=== PATIENT | female | born 1965 | race Caucasian/White ===

== ENCOUNTER 2021-09-14 18:57 | Inpatient (IN) | payer OTHER ==
--- NOTE | 2021-09-14 20:56 | Emergency Department Report ---
ED Neuro Deficit HPI - General Chief Complaint: Neuro Symptoms/Deficit Stated Complaint: TIA Time Seen by Provider: 09/14/21 19:02 Source: patient, EMS, old records reviewed Mode of arrival: Stretcher Limitations: No Limitations - History of Present Illness Initial Comments: Chief complaint: Stroke HPI: This is a 55-year-old female with history of hypertension, dyslipidemia who presents from [facility] [place]note 2[place] via EMS after recent diagnosis of stroke acute today. This morning at 8 AM patient had the onset of right facial droop, slurred speec h, right upper and right lower extremity weakness. She was evaluated at [facility] [place][note 2]. MRI brain showed acute infarct left lentiform nuclei. MRA neck and [place]: No aneurysm or stenosis Patient has persistent symptoms. I reviewed labs obtained BMP within normal limits, CBC within normal limits According to medication administration documentation patient received aspirin at 1755 My personal interpretation of EKG via EMS EKG obtained 183 normal sinus rhythm rate 85 bpm normal axis normal intervals no ST elevation nonspecific T wave pattern enlarged inferior P waves -: Sudden, This morning (8:00) Location: speech, right face, right arm, right leg History of same: Yes Place: home Severity: mild Quality: weak Improves With: none Worsens With: none On Anticoagulants: No Context: sudden onset Associated Symptoms: denies other symptoms Treatments Prior to Arrival: Aspirin, other (Extensive work-up at [facility]) - Related Data Allergies/Adverse Reactions: Allergies Allergy/AdvReac Type Severity Reaction Status Date / Time No Known Allergies Allergy Verified 09/14/21 19:37 ED Review of Systems ROS: Stated complaint: TIA Other details as noted in HPI Comment: All other systems reviewed and negative Constitutional: denies: chills, fever, malaise Respiratory: denies: cough, shortness of breath Cardiovascular: denies: chest pain Gastrointestinal: denies: abdominal pain, nausea, vomiting Neurological: weakness. denies: headache, numbness, paresthesias, confusion Psychiatric: denies: anxiety, depression ED Past Medical Hx - Past Medical History Previous Medical History?: Yes Hx Hypertension: Yes Additional medical history: HIGH CHOLESTEROL - Surgical History Past Surgical History?: Yes Additional Surgical History: Breast implant surgery - Family History Family history: diabetes, hypertension, vascular disease (Mother has history of diabetes, stroke. Brother received heart transplant) - Social History Smoking Status: Never Smoker Substance Use Type: None ED Neuro Physical Exam - General Limitations: No Limitations General appearance: alert, in no apparent distress Suspected Stroke: Yes - Head Head exam: Present: atraumatic, normocephalic - Eye Eye exam: Present: normal appearance - ENT ENT exam: Present: mucous membranes moist - Neck Neck exam: Present: normal inspection, full ROM - Respiratory Respiratory exam: Present: normal lung sounds bilaterally. Absent: respiratory distress, wheezes, rales, rhonchi - Cardiovascular Cardiovascular Exam: Present: regular rate, normal rhythm, normal heart sounds. Absent: systolic murmur, diastolic murmur, rubs, gallop - GI/Abdominal GI/Abdominal exam: Present: soft, normal bowel sounds. Absent: distended, tenderness, guarding, rebound - Extremities Exam Extremities exam: Present: normal inspection - Back Exam Back exam: Present: normal inspection - Neurological Exam Neurological exam: Present: alert, oriented X3 - NIHSS Assessment Interval: Baseline 1a. Level of Consciousness: alert/keenly responsive 1b. LOC Questions: answers both correctly 1c. LOC Commands: performs tasks correctly 2. Best Gaze: normal 3. Visual: no visual loss 4. Facial Palsy: minor paralysis 5b. Motor Arm Right: drift 5a. Motor Arm Left: no drift 6a. Motor Leg Left: no drift 6b. Motor Leg Right: drift 7. Limb Ataxia: absent 8. Sensory: normal 9. Best Language: mild/moderate aphasia 10. Dysarthria: mild/moderate dysarthria 11. Extinction/Inattention: no abnormality Total Score: 5 Stroke Severity: Moderate Stroke - Psychiatric Psychiatric exam: Present: normal affect, normal mood - Skin Skin exam: Present: warm, dry, intact, normal color. Absent: rash ED Course Vital Signs 09/14/21 19:56 Temperature 98.1 F Pulse Rate 82 Respiratory 14 Rate Blood Pressure 187/94 [Left] O2 Sat by Pulse 100 Oximetry - Lab Data Result diagrams: 09/14/21 21:21 09/14/21 21:21 Lab Results 09/14/21 09/14/21 09/14/21 Range/Units 21:21 21:21 21:21 WBC 8.8 (4.5-11.0) K/mm3 RBC 4.42 (3.65-5.03) M/mm3 Hgb 13.8 (10.1-14.3) gm/dl Hct 41.8 (30.3-42.9) % MCV 95 (79-97) fl MCH 31 (28-32) pg MCHC 33 (30-34) % RDW 12.6 L (13.2-15.2) % Plt Count 242 (140-440) K/mm3 Lymph % (Auto) 16.7 (13.4-35.0) % [place] % (Auto) 4.0 (0.0-7.3) % Eos % (Auto) 0.4 (0.0-4.3) % Baso % (Auto) 0.3 (0.0-1.8) % Lymph # (Auto) 1.5 (1.2-5.4) K/mm3 [place] # (Auto) 0.4 (0.0-0.8) K/mm3 Eos # (Auto) 0.0 (0.0-0.4) K/mm3 Baso # (Auto) 0.0 (0.0-0.1) K/mm3 Seg Neutrophils % 78.6 H (40.0-70.0) % Seg Neutrophils # 6.9 (1.8-7.7) K/mm3 PT 12.3 (12.2-14.9) Sec. INR 0.82 L (0.87-1.13) APTT 35.3 (24.2-36.6) Sec. Sodium 141 (137-145) mmol/L Potassium 3.7 (3.6-5.0) mmol/L Chloride 102.8 (98-107) mmol/L Carbon Dioxide 24 (22-30) mmol/L Anion Gap 18 mmol/L BUN 14 (7-17) mg/dL Creatinine 0.6 (0.6-1.2) mg/dL Estimated GFR > 60 ml/min BUN/Creatinine Ratio 23 % Glucose 140 H (65-100) mg/dL Calcium 9.9 (8.4-10.2) mg/dL Total Bilirubin 0.20 (0.1-1.2) mg/dL AST 18 (5-40) units/L ALT 11 (7-56) units/L Alkaline Phosphatase 110 (35-129) units/L Troponin T < 0.010 (0.00-0.029) ng/mL Total Protein 7.1 (6.3-8.2) g/dL Albumin 4.6 (3.9-5) g/dL Albumin/Globulin Ratio 1.8 % - EKG Data -: EKG Interpreted by Me EKG shows normal: sinus rhythm Rate: normal Interpretation: nonspecific ST-T wave ryan 09/14/21 20:57 EKG obtained 3 EKG interpreted by me Normal sinus rhythm normal rate normal axis normal intervals no ST elevation no ST-T signs of ischemia normal EKG rate 60 beats per - Medical Decision Making Acute CVA, MRI revealed acute infarct left lentiform nuclear. Will allow permissive hypertension. No LVO on MRA of the neck and [place]. Shortly upon patient's arrival, I contacted [facility] physician. After case discussion, requested admission. Dr. Borjas [place] physician approved admission this facility. Admitted to the hospitalist service. EKG obtained per EMS and repeated in our emergency department without acute ischemia or infarct. Normal sinus rhythm without atrial fibrillation. CBC CMP within normal limits. PT PTT within normal limits. Patient is admitted to the hospital service for further treatment and evaluation of acute CVA. Critical care attestation.: If time is entered above; I have spent that time in minutes in the direct care of this critically ill patient, excluding procedure time. ED Disposition Clinical Impression: Acute CVA (cerebrovascular accident) Disposition: ADMITTED INPATIENT Is pt being admited?: Yes Does the pt Need Aspirin: No Condition: Stable
[2021-09-14 21:34] LABS: Basophils % (Auto) 0.3 % (0.0-1.8); Eosinophils % (Auto) 0.4 % (0.0-4.3); Hematocrit 41.8 % (30.3-42.9); Hemoglobin 13.8 gm/dl (10.1-14.3); Lymphocytes # (Auto) 1.5 K/mm3 (1.2-5.4); Lymphocytes % (Auto) 16.7 % (13.4-35.0); Mean Corpuscular HGB Conc 33 % (30-34); Mean Corpuscular Volume 95 fl (79-97); Monocytes # (Auto) 0.4 K/mm3 (0.0-0.8); Platelet Count 242 K/mm3 (140-440); Red Blood Count 4.42 M/mm3 (3.65-5.03); Red Cell Distribution Width 12.6 % (13.2-15.2)
[2021-09-14 21:44] LABS: INR 0.82 (0.87-1.13)
[2021-09-14 21:45] LABS: Partial Thromboplastin Time 35.3 Sec. (24.2-36.6)
[2021-09-14 21:56] LABS: Alanine Aminotransferase 11 units/L (7-56); Albumin 4.6 g/dL (3.9-5); Blood Urea Nitrogen 14 mg/dL (7-17); Calcium 9.9 mg/dL (8.4-10.2); Hemolysis Index 16
[2021-09-14 22:22] LABS: BUN/Creatinine Ratio 23
[2021-09-15] MEDS ORDERED: ONDANSETRON 4 MG/2 ML INJ IV PRN (00:51)
[2021-09-15] MEDS ORDERED: ALBUTEROL 2.5 MG/3 ML NEBU IH PRN (00:51)
[2021-09-15] MEDS ORDERED: MORPHINE 2 MG/1 ML INJ IV PRN (00:51)
[2021-09-15] MEDS ORDERED: ACETAMINOPHEN 325 MG TAB PO PRN (00:51)
[2021-09-15] MEDS ORDERED: HYDROmorphone 1 MG/1 ML INJ IV PRN (00:51)
--- NOTE | 2021-09-15 01:06 | History and Physical Report ---
History of Present Illness Date of examination: 09/15/21 Date of admission: 09/15/21 Chief complaint: Right upper extremity weakness History of present illness: 55-year-old female with history of hypertension, dyslipidemia was brought from [facility] [place] via EMS after recent diagnosis of stroke acute today. patient had the onset of right facial droop, slurred speech, right upper and right lower extremity weakness since 8 AM this morning. She was evaluated at [facility] [place]. MRI brain showed acute infarct left lentiform nuclei. MRA neck and [place]: No aneurysm or stenosis After case discussion, requested admission. Dr. Borjas [place] physician approved admission this facility. We will put the patient on CVA pathway. Aspirin . Lipitor. Will consult neurology for evaluation Past History Past Medical History: hypertension, hyperlipidemia Medications and Allergies Allergies Allergy/AdvReac Type Severity Reaction Status Date / Time No Known Allergies Allergy Verified 09/14/21 19:37 Review of Systems Constitutional: weakness Neurological: weakness, parathesias, numbness, change in speech Exam - Constitutional Vitals: Temp Pulse Resp BP Pulse Ox 98.1 F 69 20 161/92 99 09/14/21 19:56 09/14/21 23:00 09/14/21 23:00 09/14/21 23:00 09/14/21 23:00 General appearance: Present: no acute distress, well-nourished - EENT Eyes: Present: PERRL ENT: hearing intact, clear oral mucosa - Neck Neck: Present: supple, normal ROM - Respiratory Respiratory effort: normal Respiratory: bilateral: CTA - Cardiovascular Heart Sounds: Present: S1 & S2. Absent: rub, click - Extremities Extremities: pulses symmetrical, No edema Peripheral Pulses: within normal limits - Abdominal General gastrointestinal: Present: soft, non-tender, non-distended, normal bowel sounds Female genitourinary: Present: normal - Integumentary Integumentary: Present: clear, warm, dry - Musculoskeletal Musculoskeletal: gait normal, strength equal bilaterally - Psychiatric Psychiatric: appropriate mood/affect, intact judgment & insight - Neurologic Neurologic: CNII-XII intact, moves all extremities, other (Right upper extremity weakness right lower extremity weakness) HEART Score - HEART Score Troponin: Troponin T < 0.010 ng/mL (0.00-0.029) 09/14/21 21:21 Results - Labs CBC & Chem 7: 09/14/21 21:21 09/14/21 21:21 Labs: Laboratory Last Values WBC 8.8 K/mm3 (4.5-11.0) 09/14/21 21:21 RBC 4.42 M/mm3 (3.65-5.03) 09/14/21 21:21 Hgb 13.8 gm/dl (10.1-14.3) 09/14/21 21:21 Hct 41.8 % (30.3-42.9) 09/14/21 21:21 MCV 95 fl (79-97) 09/14/21 21:21 MCH 31 pg (28-32) 09/14/21 21: MCHC 33 % (30-34) 09/14/21 21: RDW 12.6 % (13.2-15.2) L 09/14/21 21:21 Plt Count 242 K/mm3 (140-440) 09/14/21 21: Lymph % (Auto) 16.7 % (13.4-35.0) 09/14/21 21:21 [place] % (Auto) 4.0 % (0.0-7.3) 09/14/21 21: Eos % (Auto) 0.4 % (0.0-4.3) 09/14/21 21: Baso % (Auto) 0.3 % (0.0-1.8) 09/14/21 21:21 Lymph # (Auto) 1.5 K/mm3 (1.2-5.4) 09/14/21 21: [place] # (Auto) 0.4 K/mm3 (0.0-0.8) 09/14/21 21:21 Eos # (Auto) 0.0 K/mm3 (0.0-0.4) 09/14/21 21:21 Baso # (Auto) 0.0 K/mm3 (0.0-0.1) 09/14/21 21: Seg Neutrophils % 78.6 % (40.0-70.0) H 09/14/21 21:21 Seg Neutrophils # 6.9 K/mm3 (1.8-7.7) 09/14/21 21: PT 12.3 Sec. (12.2-14.9) 09/14/21 21:21 INR 0.82 (0.87-1.13) L 09/14/21 21:21 APTT 35.3 Sec. (24.2-36.6) 09/14/21 21:21 Sodium 141 mmol/L (137-145) 09/14/21 21:21 Potassium 3.7 mmol/L (3.6-5.0) 09/14/21 21:21 Chloride 102.8 mmol/L (98-107) 09/14/21 21:21 Carbon Dioxide 24 mmol/L (22-30) 09/14/21 21:21 Anion Gap 18 mmol/L 09/14/21 21:21 BUN 14 mg/dL (7-17) 09/14/21 21:21 Creatinine 0.6 mg/dL (0.6-1.2) 09/14/21 21:21 Estimated GFR > 60 ml/min 09/14/21 21:21 BUN/Creatinine Ratio 23 % 09/14/21 21:21 Glucose 140 mg/dL (65-100) H 09/14/21 21:21 Calcium 9.9 mg/dL (8.4-10.2) 09/14/21 21:21 Total Bilirubin 0.20 mg/dL (0.1-1.2) 09/14/21 21:21 AST 18 units/L (5-40) 09/14/21 21:21 ALT 11 units/L (7-56) 09/14/21 21:21 Alkaline Phosphatase 110 units/L (35-129) 09/14/21 21:21 Troponin T < 0.010 ng/mL (0.00-0.029) 09/14/21 21:21 Total Protein 7.1 g/dL (6.3-8.2) 09/14/21 21:21 Albumin 4.6 g/dL (3.9-5) 09/14/21 21:21 Albumin/Globulin Ratio 1.8 % 09/14/21 21:21 - Imaging and Cardiology MRI - head: report reviewed Assessment and Plan VTE prophylaxis?: Chemical Plan of care discussed with patient/family: Yes - Patient Problems (1) Acute CVA (cerebrovascular accident) Current Visit: Yes Status: Acute Plan to address problem: Admit the patient to the medical telemetry. Aspirin 325 mg p.o. daily. Lipitor 40 mg p.o. daily. PT OT any speech evaluation. Neurology evaluation. MRI of the brain and MRA of the brain and neck with and without contrast, echocardiogram (2) Hypertension Current Visit: Yes Status: Acute Plan to address problem: Labetalol 10 mg IV every 6 hours as needed. Will allow permissive hypertension (3) Dyslipidemia Current Visit: Yes Status: Acute Plan to address problem: Lipitor 40 mg p.o. daily. Recheck lipid panel (4) DVT prophylaxis Current Visit: Yes Status: Acute Plan to address problem: Heparin 5000 units subcu every 8 hours for DVT prophylaxis. Pepcid 20 mg IV every 12 hours for GI prophylaxis. Patient is a full code
[2021-09-15] MEDS: IPRATROPIUM/ALBUTEROL SULFATE 3 ML AMPUL.NEB IH SCH ×4 (04:50→20:41)
[2021-09-15] MEDS: SODIUM CHLORIDE 0.9% 1000 ML 1,000 ML IV SCH (06:09)
[2021-09-15] MEDS: HEPARIN 5,000 UNIT/1 ML VIAL SUB-Q SCH ×3 (06:10→21:36)
--- NOTE | 2021-09-15 08:25 | Consultation ---
History of Present Illness Consult date: 09/15/21 Reason for Consult: right side weakness History of present illness: Right upper extremity weakness History of present illness: 55-year-old female with history of hypertension, dyslipidemia was brought from [facility] via EMS after recent diagnosis of stroke acute today. patient had the onset of right facial droop, slurred speech, right upper and right lower extremity weakness since 8 AM this morning. She was evaluated at [facility]. MRI brain showed acute infarct left lentiform nuclei. MRA neck and [place]: No aneurysm or stenosis According to pt. 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 Dr. Borjas [place] physician approved admission this facility. We will put the patient on CVA pathway. Aspirin . Lipitor. Past History Past Medical History: hypertension, hyperlipidemia Medications and Allergies Allergies Allergy/AdvReac Type Severity Reaction Status Date / Time No Known Allergies Allergy Verified 09/14/21 19:37 Review of Systems Constitutional: weakness Neurological: weakness, parathesias, numbness, change in speech Exam Past History Past Medical History: hypertension, hyperlipidemia Medications and Allergies Allergies Allergy/AdvReac Type Severity Reaction Status Date / Time No Known Allergies Allergy Verified 09/14/21 19:37 Home Medications Medication Instructions Recorded Confirmed Last Taken Type Rosuvastatin (Nf) [Crestor] 5 mg PO QHS 09/15/21 09/15/21 09/13/21 19:45 History Vitamin D3 1 09/15/21 Unknown History hydroCHLOROthiazide 12.5 mg PO QDAY 09/15/21 09/15/21 09/13/21 09:00 History [Hydrochlorothiazide] Active Meds: Active Medications Acetaminophen (Acetaminophen 325 Mg Tab) 650 mg PO Q4H PRN PRN Reason: Pain MILD(1-3)/Fever >100.5/HECK Albuterol (Albuterol 2.5 Mg/3 Ml Nebu) 2.5 mg IH Q3HRT PRN PRN Reason: Shortness Of Breath Albuterol/Ipratropium (Ipratropium/Albuterol Sulfate 3 Ml Ampul.Neb) 1 ampul IH Q6HRT [facility] Last Admin: 09/15/21 04:50 Dose: Not Given Aspirin (Aspirin 325 Mg Tab) 325 mg PO QDAY [facility] Atorvastatin Calcium (Atorvastatin 40 Mg Tab) 40 mg PO QHS [facility] Famotidine (Famotidine 20 Mg/2 Ml Inj) 20 mg IV BID [facility] Heparin Sodium (Porcine) (Heparin 5,000 Unit/1 Ml Vial) 5,000 unit SUB-Q Q8HR [facility] Last Admin: 09/15/21 06:10 Dose: 5,000 unit Hydromorphone HCl (Hydromorphone 1 Mg/1 Ml Inj) 0.5 mg IV Q3H PRN PRN Reason: Pain , Severe (7-10) Sodium Chloride (Nacl 0.9% 1000 Ml) 1,000 mls @ 75 mls/hr IV DIRECT [facility] Last Admin: 09/15/21 06:09 Dose: 75 mls/hr Labetalol HCl (Labetalol 20 Mg/4 Ml Inj) 10 mg IV Q6H PRN PRN Reason: Blood Pressure Morphine Sulfate (Morphine 2 Mg/1 Ml Inj) 2 mg IV Q4H PRN PRN Reason: Pain, Moderate (4-6) Ondansetron HCl (Ondansetron 4 Mg/2 Ml Inj) 4 mg IV Q8H PRN PRN Reason: Nausea And Vomiting Sodium Chloride (Sodium Chloride 0.9% 10 Ml Flush Syringe) 10 ml IV BID [facility] Sodium Chloride (Sodium Chloride 0.9% 10 Ml Flush Syringe) 10 ml IV PRN PRN PRN Reason: LINE FLUSH Physical Examination - Vital Signs Vital Signs: Vital Signs Pulse Resp 82 14 09/14/21 19:52 09/14/21 19:52 - Constitutional General appearance: comfortable - EENT EENT: Present: PERRL, mucous membranes moist - Respiratory Respiratory: Present: chest non-tender, lungs clear, rhonchi - Cardiovascular Cardiovascular: Present: regular rate, normal S1, normal S2 Extremities: Present: no peripheral edema bilatateraly, no clubbing, cyanosis - Gastrointestinal Gastrointestinal: Present: normoactive bowel sounds - Integumentary Integumentary: Present: normal - Neurologic Cranial nerve examination: PERRL, EOMI, facial droop Speech examination: intact Sensorimotor examination: intact Detailed motor examination: other (slight give away weakness right upper and lower4-/5 , gait not done, tinnel sign at wrist is negative , positive slight tenderness right TM joint) - Level of Consciousness 1a. Level of Consciousness: alert/keenly responsive - LOC Questions 1b. LOC Questions: answers both correctly - LOC Command 1c. LOC Commands: performs tasks correctly - Best Gaze 2. Best Gaze: normal - Visual 3. Visual: no visual loss - Facial Palsy 4. Facial Palsy: minor paralysis - Motor Arm 5a. Motor Arm Left: no drift 5b. Motor Arm Right: drift - Motor Leg 6a. Motor Leg Left: no drift 6b. Motor Leg Right: drift - Limb Ataxia 7. Limb Ataxia: absent - Sensory 8. Sensory: normal - Best Language 9. Best Language: no aphasia - Dysarthria 10. Dysarthria: normal - Extinction and Inattention 11. Extinction/Inattention: no abnormality - Scoring Total Score: 3 Stroke Severity: Minor Stroke Results - Laboratory Findings CBC and BMP: 09/14/21 21:21 09/14/21 21:21 Abnormal Lab Findings: Abnormal Labs 09/14/21 09/14/21 09/14/21 21:21 21:21 21:21 RDW 12.6 L Seg Neutrophils % 78.6 H INR 0.82 L Glucose 140 H Assessment and Plan - Imaging and Cardiology MRI - head: report reviewed Assessment and Plan 55-year-old female with history of hypertension, dyslipidemia was brought from [facility] via EMS after recent diagnosis of stroke acute today. patient had the onset of right facial droop, slurred speech, right upper and right lower extremity weakness since 8 AM this morning. She was evaluated at [facility]. MRI brain showed acute infarct left lentiform nuclei. MRA neck and [place]: No aneurysm or stenosis - Patient Problems # Acute CVA (cerebrovascular accident)/ left lentiform area -findings are suggestive of small vesseles disease -CT brain is unremarkable -MRI brain is remarkable for left lentiform acute infarct -MAR brain is unremarkable -US carotid is pending -she is not candidate for TPA nor thrombectomy -started on ASA 325 mg and lipitor 40 mg -check LDL and A1C -echo is pending -PT and ST evaluate # Hypertension -Labetalol 10 mg IV every 6 hours as needed. Will allow permissive hypertension -Initial BP150/85 # Dyslipidemia -Lipitor 40 mg p.o. daily. 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 Pepcid 20 mg IV every 12 hours for GI prophylaxis. Patient is a full code PLAN 1- No need to repeat MRI/MRA brain 2- UD of carotid is pending 3-echo is pending 4-LDL and A1C is pending 5-suggest Xry hands,ESR,POLLY 6- neurology follow up for CVA and possible CTS will follow
[2021-09-15 09:04] LABS: Chol/HDL Ratio 3.2 %
--- NOTE | 2021-09-15 09:50 | Progress Note ---
Assessment and Plan Assessment and plan: -- Acute CVA (cerebrovascular accident) Current Visit: Yes Status: Acute Not a candidate for TPA Aspirin and statin Patient already had MRI and MRA at [facility], reviewed Check echocardiogram; normal EF 55%, no PFO Carotid Doppler; less than 50% stenosis bilateral carotids Physical therapy; evaluated the patient, recommended outpatient PT Occupational therapy; pending Supportive care Neurology following Patient will follow with private neurologist upon discharge --Hypertension Current Visit: Yes Status: Acute Labetalol 10 mg IV every 6 hours as needed. Will allow permissive hypertension Closely monitor blood pressure adjust as needed --Dyslipidemia Current Visit: Yes Status: Acute Lipitor 40 mg p.o. daily. Low-cholesterol diet --DVT prophylaxis Current Visit: Yes Status: Acute Heparin 5000 units subcu every 8 hours --full code Follow PT OT and rehabilitation Ambulate as tolerated [employer] Admin recommendations noted and appreciated And I will try to contact [place] physician and updated patient's condition Plan of care reviewed with the patient and her nurse I also discussed with neurologist And during the multidisciplinary rounds Possible discharge in 1 to 2 days if stable Prolonged care 35 minutes. Advance care planning 32 minutes --advance care plan; Patient condition explained in detail to the patient Tests and reports, explained to the patient Plan of care explained to the patient discussed in detail with the patient Neurology consultants recommendations reviewed with the patient Physical therapy evaluation and recommendations explained and discussed in detail Answered all patient's questions Also discussed that occupational therapy is still pending Discharge planning discussed with the patient I also informed the patient that I would discuss patient's condition treatment and discharge planning and testing reports With the [facility] physician Time spent +32 minutes History Interval history: I have seen and examined the patient at the bedside Patient's chart and medications reviewed Patient was admitted with acute CVA Feels slightly better Patient reports that her right-sided facial weakness significantly improved Speech is more clear did not come back to baseline Still continues to have right-sided upper and lower extremity mild weakness Significantly improved since morning Hospitalist Physical - Constitutional Vitals: Temp Pulse Resp BP Pulse Ox 97.6 F 74 16 148/82 97 09/15/21 04:13 09/15/21 04:47 09/15/21 04:13 09/15/21 04:13 09/15/21 04:13 General appearance: Present: no acute distress, well-nourished, other (Speech slow and clear) - EENT Eyes: Present: PERRL, EOM intact - Neck Neck: Present: supple, normal ROM - Respiratory Respiratory effort: normal Respiratory: bilateral: diminished, negative: rales, rhonchi, wheezing - Cardiovascular Rhythm: regular Heart Sounds: Present: S1 & S2 - Extremities Extremities: no ischemia, No edema - Abdominal General gastrointestinal: soft, non-tender, non-distended, normal bowel sounds - Integumentary Integumentary: Present: clear, warm - Psychiatric Psychiatric: appropriate mood/affect, cooperative - Neurologic Neurologic: moves all extremities (Very mild weakness of both right upper and lower extremities motor power 4-5/5 ), other (Speech clear) HEART Score - HEART Score Troponin: Troponin T < 0.010 ng/mL (0.00-0.029) 09/14/21 21:21 Results - Labs CBC & Chem 7: 09/14/21 21:21 09/14/21 21:21 Labs: Laboratory Last Values WBC 8.8 K/mm3 (4.5-11.0) 09/14/21 21: RBC 4.42 M/mm3 (3.65-5.03) 09/14/21 21:21 Hgb 13.8 gm/dl (10.1-14.3) 09/14/21 21: Hct 41.8 % (30.3-42.9) 09/14/21 21:21 MCV 95 fl (79-97) 09/14/21 21: MCH 31 pg (28-32) 09/14/21 21: MCHC 33 % (30-34) 09/14/21 21: RDW 12.6 % (13.2-15.2) L 09/14/21 21:21 Plt Count 242 K/mm3 (140-440) 09/14/21 21:21 Lymph % (Auto) 16.7 % (13.4-35.0) 09/14/21 21:21 [place] % (Auto) 4.0 % (0.0-7.3) 09/14/21 21:21 Eos % (Auto) 0.4 % (0.0-4.3) 09/14/21 21: Baso % (Auto) 0.3 % (0.0-1.8) 09/14/21 21:21 Lymph # (Auto) 1.5 K/mm3 (1.2-5.4) 09/14/21 21:21 [place] # (Auto) 0.4 K/mm3 (0.0-0.8) 09/14/21 21:21 Eos # (Auto) 0.0 K/mm3 (0.0-0.4) 09/14/21 21:21 Baso # (Auto) 0.0 K/mm3 (0.0-0.1) 09/14/21 21:21 Seg Neutrophils % 78.6 % (40.0-70.0) H 09/14/21 21:21 Seg Neutrophils # 6.9 K/mm3 (1.8-7.7) 09/14/21 21:21 PT 12.3 Sec. (12.2-14.9) 09/14/21 21:21 INR 0.82 (0.87-1.13) L 09/14/21 21:21 APTT 35.3 Sec. (24.2-36.6) 09/14/21 21:21 Sodium 141 mmol/L (137-145) 09/14/21 21:21 Potassium 3.7 mmol/L (3.6-5.0) 09/14/21 21:21 Chloride 102.8 mmol/L (98-107) 09/14/21 21:21 Carbon Dioxide 24 mmol/L (22-30) 09/14/21 21:21 Anion Gap 18 mmol/L 09/14/21 21:21 BUN 14 mg/dL (7-17) 09/14/21 21:21 Creatinine 0.6 mg/dL (0.6-1.2) 09/14/21 21:21 Estimated GFR > 60 ml/min 09/14/21 21:21 BUN/Creatinine Ratio 23 % 09/14/21 21:21 Glucose 140 mg/dL (65-100) H 09/14/21 21:21 Calcium 9.9 mg/dL (8.4-10.2) 09/14/21 21:21 Total Bilirubin 0.20 mg/dL (0.1-1.2) 09/14/21 21:21 AST 18 units/L (5-40) 09/14/21 21:21 ALT 11 units/L (7-56) 09/14/21 21:21 Alkaline Phosphatase 110 units/L (35-129) 09/14/21 21:21 Troponin T < 0.010 ng/mL (0.00-0.029) 09/14/21 21:21 Total Protein 7.1 g/dL (6.3-8.2) 09/14/21 21:21 Albumin 4.6 g/dL (3.9-5) 09/14/21 21:21 Albumin/Globulin Ratio 1.8 % 09/14/21 21:21 Triglycerides 84 mg/dL (2-149) 09/15/21 Unknown Cholesterol 208 mg/dL (50-199) H 09/15/21 Unknown LDL Cholesterol Direct 131 mg/dL (50-130) H 09/15/21 Unknown HDL Cholesterol 65 mg/dL (40-59) H 09/15/21 Unknown Cholesterol/HDL Ratio 3.20 % 09/15/21 Unknown Siegel/IV: Voiding Method Toilet Active Medications - Current Medications Current Medications: Generic Name Dose Route Start Last Admin Trade Name Freq PRN Reason Stop Dose Admin Acetaminophen 650 mg 09/15/21 00:51 Acetaminophen 325 Mg Tab PO Q4H PRN Pain MILD(1-3)/Fever >100.5/HECK Albuterol 2.5 mg 09/15/21 00:51 Albuterol 2.5 Mg/3 Ml Nebu IH Q3HRT PRN Shortness Of Breath Albuterol/Ipratropium 1 ampul 09/15/21 02:00 09/15/21 04:50 Ipratropium/Albuterol Sulfate 3 Ml Ampul.Neb IH Not Given Q6HRT [facility] Aspirin 325 mg 09/15/21 10:00 Aspirin 325 Mg Tab PO QDAY [facility] Atorvastatin Calcium 40 mg 09/15/21 22:00 Atorvastatin 40 Mg Tab PO QHS [facility] Famotidine 20 mg 09/15/21 10:00 Famotidine 20 Mg/2 Ml Inj IV BID [facility] Heparin Sodium (Porcine) 5,000 unit 09/15/21 06:00 09/15/21 06:10 Heparin 5,000 Unit/1 Ml Vial SUB-Q 5,000 unit Q8HR [facility] Administration Hydromorphone HCl 0.5 mg 09/15/21 00:51 Hydromorphone 1 Mg/1 Ml Inj IV Q3H PRN Pain , Severe (7-10) Sodium Chloride 1,000 mls @ 75 mls/hr 09/15/21 01:00 09/15/21 06:09 Nacl 0.9% 1000 Ml IV 75 mls/hr DIRECT L[facility] Administration Labetalol HCl 10 mg 09/15/21 01:08 Labetalol 20 Mg/4 Ml Inj IV Q6H PRN Blood Pressure Morphine Sulfate 2 mg 09/15/21 00:51 Morphine 2 Mg/1 Ml Inj IV Q4H PRN Pain, Moderate (4-6) Ondansetron HCl 4 mg 09/15/21 00:51 Ondansetron 4 Mg/2 Ml Inj IV Q8H PRN Nausea And Vomiting Sodium Chloride 10 ml 09/15/21 10:00 Sodium Chloride 0.9% 10 Ml Flush Syringe IV BID LYNDON Sodium Chloride 10 ml 09/15/21 00:51 Sodium Chloride 0.9% 10 Ml Flush Syringe IV PRN PRN LINE FLUSH
--- NOTE | 2021-09-15 10:27 | Electrocardiograph Report ---
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
--- NOTE | 2021-09-15 10:40 | Electrocardiograph Report ---
[facility] Test Date: 2021-09-15 Test Time: 07:24:31 Pat Name: CASIMIRO MEANS Department: Room: A486 1 Gender: F Psychological Operations Officer: JERILYN : 1965 Requested By: MADISON YATES Order Number: [id number] Reading MD: Abhilash Randall Measurements Intervals [place] Rate: 67 P: 72 DE: 156 QRS: 8 QRSD: 85 T: 55 QT: 411 QTc: 433 Interpretive Statements Sinus rhythm No significant change from 09/14/21. Electronically Signed On 09-15-2021 10:40:00 EST by Abhilash Randall
[2021-09-15] MEDS: FAMOTIDINE 20 MG/2 ML INJ IV SCH ×2 (10:58→21:37)
[2021-09-15] MEDS: ASPIRIN 325 MG TAB PO SCH (10:58)
--- NOTE | 2021-09-15 11:27 | Vascular Lab Report ---
DUPLEX DOPPLER ULTRASOUND CAROTID, BILATERAL INDICATION / CLINICAL INFORMATION: cva. COMPARISON: None available. FINDINGS: RIGHT CAROTID: Minimal atherosclerotic plaque. - PLAQUE ESTIMATE (%): < 50% - CCA velocity: 59 cm/sec. - ICA peak systolic velocity: 91 cm/sec. - ICA/CCA PSV Ratio: Less than 2. Right Vertebral Artery: Antegrade flow. LEFT CAROTID: Minimal atherosclerotic plaque. - PLAQUE ESTIMATE (%): < 50% - CCA velocity: 69 cm/sec. - ICA peak systolic velocity: 84 cm/sec. - ICA/CCA PSV Ratio: Less than 2. Left Vertebral Artery: Antegrade flow. IMPRESSION: 1. Right Internal Carotid Artery: Less than 50% diameter stenosis. 2. Left Internal Carotid Artery: Less than 50% diameter stenosis. Velocity criteria are extrapolated from diameter data as defined by the Society of Radiologists in Ul trasound Consensus Conference, Radiology 2003; 229;340-346. NO STENOSIS (NORMAL) - Plaque = none; ICA PSV < 125 cm/sec; ICA/CCA PSV Ratio < 2.0 <50% STENOSIS - Plaque < 50%; ICA PSV < 125 cm/sec; ICA/CCA PSV Ratio < 2.0 50-69% STENOSIS - Plaque > 50%; ICA PSV = 125-230 cm/sec; ICA/CCA PSV Ratio = 2.0-4.0 >70% BUT <100% STENOSIS - Plaque > 50%; ICA PSV > 230 cm/sec; ICA/CCA PSV Ratio > 4.0 NEAR OCCLUSION - Plaque = visible lumen; ICA PSV = high/low/none; ICA/CCA PSV Ratio = variable TOTAL OCCLUSION - Plaque = no lumen; ICA PSV = none; ICA/CCA PSV Ratio = N/A Scribed by: Radha Mcghee RDMS, RVT, RMSKS Scribed: 09/15/2021 10:08 AM I have reviewed the images, agree with this report, and edited this report as needed. Signer Name: Jerome Castro MD Signed: 09/15/2021 11:23 AM Workstation Name: [id number]
--- NOTE | 2021-09-15 13:34 | XRay Report ---
BILATERAL HAND 2 VIEW(S) INDICATION / CLINICAL INFORMATION: osteo arthritis COMPARISON: None available. FINDINGS: BONES / JOINT(S): No acute fracture or subluxation. There is moderate degenerative joint disease of t he interphalangeal joints of the right first digit, otherwise no significant arthritis. SOFT TISSUES: No significant abnormality. ADDITIONAL FINDINGS: None. Signer Name: Yuriy Browning DO Signed: 09/15/2021 1:29 PM Workstation Name: [email or web address]
--- NOTE | 2021-09-15 20:35 | Event Note ---
Date: 09/15/21 I called [place] physician at [phone] to discuss about the patient, as they were all busy I could not contact her physician Left a voicemail left by callback #[phone] to discuss the patient's condition, patient reports and treatment and discharge planning. I will try to call again in 10 minutes. I called back again and discussed the case with [place] physician , answered all her questions possible discharge home tomorrow
[2021-09-16] MEDS: HEPARIN 5,000 UNIT/1 ML VIAL SUB-Q SCH ×2 (05:46→14:19)
[2021-09-16 06:01] LABS: Basophils % (Auto) 0.4 % (0.0-1.8); Eosinophils # (Auto) 0.1 K/mm3 (0.0-0.4); Eosinophils % (Auto) 2.1 % (0.0-4.3); Hematocrit 37.2 % (30.3-42.9); Hemoglobin 12.4 gm/dl (10.1-14.3); Lymphocytes # (Auto) 2.6 K/mm3 (1.2-5.4); Mean Corpuscular HGB Conc 33 % (30-34); Mean Corpuscular Volume 96 fl (79-97); Monocytes # (Auto) 0.4 K/mm3 (0.0-0.8); Monocytes % (Auto) 7.2 % (0.0-7.3); Platelet Count 216 K/mm3 (140-440); Red Blood Count 3.89 M/mm3 (3.65-5.03); Red Cell Distribution Width 12.8 % (13.2-15.2)
[2021-09-16 06:22] LABS: Blood Urea Nitrogen 22 mg/dL (7-17); Calcium 8.7 mg/dL (8.4-10.2); Hemolysis Index 7
[2021-09-16 06:24] LABS: BUN/Creatinine Ratio 37
[2021-09-16] MEDS: SODIUM CHLORIDE 0.9% 1000 ML 1,000 ML IV SCH (09:06)
[2021-09-16] MEDS: ASPIRIN 325 MG TAB PO SCH (09:08)
[2021-09-16] MEDS ORDERED: FAMOTIDINE 20 MG TAB PO SCH (10:00)
--- NOTE | 2021-09-16 11:32 | Progress Note ---
Assessment and Plan - Imaging and Cardiology MRI - head: report reviewed Assessment and Plan 55-year-old female with history of hypertension, dyslipidemia was brought from [facility] via EMS after recent diagnosis of stroke acute today. patient had the onset of right facial droop, slurred speech, right upper and right lower extremity weakness since 8 AM this morning. She was evaluated at [facility]. MRI brain showed acute infarct left lentiform nuclei. MRA neck and apache of [place]: No aneurysm or stenosis - Patient Problems # Acute CVA (cerebrovascular accident)/ left lentiform area -findings are suggestive of small vesseles disease -CT brain is unremarkable -MRI brain is remarkable for left lentiform acute infarct -MRA brain is unremarkable -US carotid is <50% -she is not candidate for TPA nor thrombectomy -started on ASA 325 mg and lipitor 40 mg -check LDL#131 - and A1C is pending -echo is mild diastolic dysfunctionEF#55-60% -PT and ST evaluate # Hypertension -Labetalol 10 mg IV every 6 hours as needed. Will allow permissive hypertension -Initial BP150/85 # Dyslipidemia -Lipitor 40 mg p.o. daily. 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 Pepcid 20 mg IV every 12 hours for GI prophylaxis. Patient is a full code PLAN 1- neurology follow up for CVA and possible CTS 2- Check A1C 3- asa 325 mg qg,lipitor 40 mg 4- control BP<150/80 will sign off Subjective Date of service: 09/16/21 Interval history: doing well slight right side weakness xry hand is unremarkable ESR#10 Objective - Vital Sign Vital Signs - 12hr 09/15/21 09/16/21 09/16/21 23:30 03:42 04:00 Temperature 98.0 F 97.7 F Pulse Rate 66 60 74 Respiratory 17 16 Rate Blood Pressure 138/60 149/66 O2 Sat by Pulse 98 98 Oximetry 09/16/21 09:08 Temperature 97.9 F Pulse Rate 73 Respiratory 16 Rate Blood Pressure 146/84 O2 Sat by Pulse 99 Oximetry - General Apperance Constitutional: comfortable - EENT EENT: PERRL, mucous membranes moist - Respiratory Respiratory: chest non-tender, lungs clear, rhonchi - Cardiovascular Cardiovascular: regular rate, normal S1, normal S2 Extremities: no peripheral edema bilat, no clubbing, cyanosis - Gastrointestinal Gastrointestinal: normoactive bowel sounds - Integumentary Integumentary: normal - Neurologic Cranial nerve examination: PERRL, EOMI, intact Speech examination: intact Detailed motor examination: other (slight right arm weakness 4-/5, gait is steady) - Laboratory Findings CBC and BMP: 09/16/21 05:37 09/16/21 05:37 Abnormal Lab Findings: Abnormal Labs 09/14/21 09/14/21 09/14/21 21:21 21:21 21:21 RDW 12.6 L Lymph % (Auto) Seg Neutrophils % 78.6 H INR 0.82 L Chloride BUN Glucose 140 H Cholesterol LDL Cholesterol Direct HDL Cholesterol 09/15/21 09/16/21 09/16/21 Unknown 05:37 05:37 RDW 12.8 L Lymph % (Auto) 46.0 H Seg Neutrophils % INR Chloride 109.4 H BUN 22 H Glucose 104 H Cholesterol 208 H LDL Cholesterol Direct 131 H HDL Cholesterol 65 H
--- NOTE | 2021-09-16 15:18 | Discharge Summary ---
Providers - Providers Date of Admission: 09/15/21 00:55 Attending physician: GENIE CARDOSO 09/15/21 00:51 Consult to Physician [CONS] Routine Comment: Consulting Provider: YIN BADILLO Physician Instructions: Reason For Exam: cva 09/15/21 00:55 Occupational Therapy Evaluate and Treat [CONS] Routine Comment: Reason For Exam: Neuro deficits Physical Therapy Evaluation and Treat [CONS] Routine Comment: Reason For Exam: Neuro deficits Primary care physician: APRIL HIGGINS Hospitalization Condition: Stable Hospital course: -- Acute CVA (cerebrovascular accident) Current Visit: Yes Status: Acute Not a candidate for TPA Aspirin and statin Patient already had MRI and MRA at [facility], reviewed Check echocardiogram; normal EF 55%, no PFO Carotid Doppler; less than 50% stenosis bilateral carotids Physical therapy; evaluated the patient, recommended outpatient PT Occupational therapy; pending Supportive care Neurology following Patient will follow with private neurologist upon discharge --Hypertension Current Visit: Yes Status: Acute Labetalol 10 mg IV every 6 hours as needed. Will allow permissive hypertension Closely monitor blood pressure adjust as needed --Dyslipidemia Current Visit: Yes Status: Acute Lipitor 40 mg p.o. daily. Low-cholesterol diet --DVT prophylaxis Current Visit: Yes Status: Acute Heparin 5000 units subcu every 8 hours Dictation box box Disposition: 01 HOME / SELF CARE / HOMELESS Final Discharge Diagnosis (Prints w/discharge instructions): Acute CVA with right-sided weakness. Acute dysarthria/resolved. Visual symptoms improved/advised to see private heel caser upon discharge. Hypertension. Dyslipidemia Time spent for discharge: 40 min Core Measure Documentation - Palliative Care Palliative Care/ Comfort Measures: Not Applicable - Core Measures Any of the following diagnoses?: stroke - Stroke Discharge Requirements Statin for LDL = or >70 mg/dl on DC: Yes Anticoag for atrial fib/atrial flutter: Not Applicable (No A. fib or flutter) Reason for no anticoag for AF/F on DC: Not Indicated (No A. fib flutter) Antithrombotic for ischemic stroke: Yes Exam - Constitutional Vitals: Temp Pulse Resp BP Pulse Ox 97.9 F 73 16 149/57 98 09/16/21 12:39 09/16/21 12:39 09/16/21 12:39 09/16/21 12:39 09/16/21 12:39 General appearance: Present: no acute distress, well-nourished - EENT Eyes: Present: PERRL, EOM intact - Neck Neck: Present: supple, normal ROM Plan Activity: advance as tolerated, fall precautions Diet: other (Cardiac diet) Special Instructions: physical therapy (Outpatient) Additional Instructions: Patient advised to see [place] primary care physician, neurologist,. Advised to see private heel caser . Fall precautions, outpatient physical therapy. If you have worsening symptoms contact MD, or go to the nearest emergency room Follow up with: APRIL HIGGINS MD [Primary Care Provider] - 7 Days Prescriptions: Aspirin 325 mg PO QDAY #30 tablet AtorvaSTATin [Lipitor] 40 mg PO QHS #30 tablet Famotidine [Pepcid] 20 mg PO BID #30 tablet
[2021-09-16 17:39] VITALS: BP 160/64
== END 2021-09-16 18:06 | disposition home or self-care (01) | DRG 69 ==
LOC: ED 18:57 → 4A 09-15 00:55
PROVIDERS: ADMIT Hospitalist; ATTEND Internal Medicine
DX: I67.89 Other cerebrovascular disease (principal); G81.91 Hemiplegia, unspecified affecting right dominant side; I10 Essential (primary) hypertension; E78.5 Hyperlipidemia, unspecified; E78.00 Pure hypercholesterolemia, unspecified; Z83.3 Family history of diabetes mellitus; Z82.49 Family history of ischemic heart disease and other diseases of the circulatory system
CPT/HCPCS: 36415; 80048; 80053; 80061; 84484; 85025; 85610; 85652; 85730; 86038; 93005; 93010; 93306; 93880; 94640; G0378; J3490; Q0162; C8929; J1644; J7030